=== PATIENT | female | born 1955 | race Caucasian/White ===

== ENCOUNTER 2020-05-25 09:33 | Outpatient (RCR) | payer OTHER | END 2020-05-29 09:36 | disposition home or self-care (01) | LOC: ONC 09:33 | PROVIDERS: ATTEND Radiology Radiation Oncology | DX: C50.511 Malignant neoplasm of lower-outer quadrant of right female breast (principal); Z90.89 Acquired absence of other organs; Z85.01 Personal history of malignant neoplasm of esophagus; Z85.05 Personal history of malignant neoplasm of liver | CPT/HCPCS: 77290; 77295; 77300; 77334 ×2; G0463; 77307; 77336; 77417; 99204 ==

== ENCOUNTER 2020-07-13 13:07 | Outpatient (RCR) | payer OTHER | END 2020-08-27 | disposition home or self-care (01) | LOC: ONC 13:07 | PROVIDERS: ATTEND Radiology Radiation Oncology | DX: Z53.9 Procedure and treatment not carried out, unspecified reason (principal) | CPT/HCPCS: 77336; 77417; 99213 ==